=== PATIENT | male | born 1985 | race Caucasian/White ===

== ENCOUNTER 2019-11-14 08:01 | Emergency (ER) | payer OTHER, SELFPAY ==
[2019-11-14 08:11] VITALS: BP 130/80; PULSE 88; RESP 16; TEMP 37.2; O2SAT 96
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
[2019-11-14] MEDS: ALBUTEROL SULFATE NEB 2.5 MG/3 ML INH INHALATION ×2 (08:28→09:05)
[2019-11-14] MEDS: IPRATROPIUM BR 0.02% INH SOLN 0.5 MG/2.5 ML VIAL INHALATION ×2 (08:28→09:05)
[2019-11-14] MEDS: predniSONE 20 MG TABLET 60 MG PO (08:30)
== END 2019-11-14 09:36 | disposition home or self-care (01) ==
PROVIDERS: Emergency Provider Nurse Practitioner Family; PCP Internal Medicine Gastroenterology
DX: J45.901 Unspecified asthma with (acute) exacerbation (principal); F17.210 Nicotine dependence, cigarettes, uncomplicated
CPT/HCPCS: 94640; 99213; G0463; J7512

== ENCOUNTER 2019-12-16 16:34 | Emergency (ER) | payer OTHER, SELFPAY ==
[2019-12-16 16:42] VITALS: BP 131/67; PULSE 89; RESP 16; TEMP 37.2; O2SAT 97
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
[2019-12-16] MEDS: ALBUTEROL SULFATE NEB 2.5 MG/3 ML INH INHALATION (17:11)
[2019-12-16] MEDS: IPRATROPIUM BR 0.02% INH SOLN 0.5 MG/2.5 ML VIAL INHALATION (17:12)
[2019-12-16 17:50] VITALS: PULSE 87; RESP 16; O2SAT 97
== END 2019-12-16 18:00 | disposition home or self-care (01) ==
PROVIDERS: Emergency Provider Nurse Practitioner; PCP Internal Medicine Gastroenterology
DX: J06.9 Acute upper respiratory infection, unspecified (principal); J45.901 Unspecified asthma with (acute) exacerbation; F17.210 Nicotine dependence, cigarettes, uncomplicated; M19.90 Unspecified osteoarthritis, unspecified site
CPT/HCPCS: 87804; 99213; G0463

== ENCOUNTER 2022-07-20 05:52 | Day surgery (SDC) | payer OTHER, SELFPAY ==
[2022-07-15 08:06] VITALS: BMI 34.8
[2022-07-20 06:16] VITALS: BMI 35.7
[2022-07-20] MEDS: LACTATED RINGERS 1,000 ML 150 ML IV CONT (06:35)
[2022-07-20 06:40] VITALS: BP 116/68; PULSE 72; RESP 18; TEMP 36.3; O2SAT 98
--- NOTE | 2022-07-20 07:23 | WPDHPUPDATE1 ---
History and Physical Update Update Date/Time: 07/20/22 07:23 History and Physical has been reviewed, including an updated exam of the patient. There are NO changes in the patient's condition. Risks, benefits, and alternatives have been discussed and questions answered. Patient agrees to proceed with procedure.
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
[2022-07-20 08:11] VITALS: BP 120/82; PULSE 69; RESP 15; O2SAT 99
[2022-07-20 08:21] VITALS: BP 119/79; PULSE 66; RESP 14; O2SAT 97
[2022-07-20 08:31] VITALS: BP 109/78; PULSE 56; RESP 13; O2SAT 98
--- NOTE | 2022-07-20 08:34 | WPDANESPN ---
Anes - Prog Note Post-Op Date/Time: 07/20/22 08:34 Cardiovascular status: normal Respiratory status: normal Airway patency: baseline Mental status: baseline Post-Op hydration status: normal Vital Signs: Last Vital Signs Temp 36.3 C L 07/20/22 06:40 Pulse 66 07/20/22 08:21 Resp 14 07/20/22 08:21 BP 119/79 07/20/22 08:21 Pulse Ox 97 07/20/22 08:21 O2 Del Method Room Air 07/20/22 08:21 Pain Score (VAS): 3 I/O: Intake & Output 07/19/22 07/20/22 07/20/22 23:59 07:59 15:59 Intake Total 400 Balance 400 Patient Feedback: Patient satisfied with anesthetic care.
== END 2022-07-20 08:50 | disposition home or self-care (01) ==
PROVIDERS: Visit Provider Surgery
PROC: 0DJ08ZZ Inspection of Upper Intestinal Tract, Via Natural or Artificial Opening Endoscopic (ICD-10-PCS; CPT 43235; principal; 2022-07-20 07:30)
PROC: 0DJD8ZZ Inspection of Lower Intestinal Tract, Via Natural or Artificial Opening Endoscopic (ICD-10-PCS; CPT 45378; 2022-07-20 07:30)
DX: K92.1 Melena (principal)
CPT/HCPCS: 45378; 43239

== ENCOUNTER 2022-07-20 14:07 | Outpatient (NON) | payer OTHER, SELFPAY | END 2022-07-20 14:08 | disposition home or self-care (01) | LOC: ANHLAB 07-21 14:07 | PROVIDERS: Visit Provider Surgery | DX: K92.1 Melena (principal) | CPT/HCPCS: 88305 ==

== ENCOUNTER 2022-08-08 07:41 | Outpatient (CLI) | payer OTHER, SELFPAY ==
[2022-08-08 08:25] LABS: Cholesterol 191 mg/dL (0-200); HDL Direct 33 mg/dL; Triglycerides 448 mg/dL (<150)
[2022-08-08 08:36] LABS: LDL Cholesterol Direct 106 mg/dL
[2022-08-08 09:03] LABS: Hemoglobin A1C 5.2 % (<5.7)
== END 2022-08-08 07:42 | disposition home or self-care (01) ==
LOC: ANHLAB 07:43
PROVIDERS: Visit Provider Internal Medicine
DX: R07.9 Chest pain, unspecified (principal)
CPT/HCPCS: 36415; 80061; 83036

== ENCOUNTER 2024-10-21 10:34 | Emergency (ER) | payer OTHER, SELFPAY ==
[2024-10-21 10:40] VITALS: BP 113/71; PULSE 66; RESP 16; TEMP 36.8; O2SAT 99
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
[2024-10-21 11:29] LABS: EDCOVIDSCREEN Negative (Negative); EDINFLUASCREEN Negative (Negative); EDINFLUBSCREEN Negative (Negative)
== END 2024-10-21 11:30 | disposition home or self-care (01) ==
PROVIDERS: Emergency Provider Nurse Practitioner Family; PCP Internal Medicine Gastroenterology
DX: J20.9 Acute bronchitis, unspecified (principal); S50.862A Insect bite (nonvenomous) of left forearm, initial encounter; W57.XXXA Bitten or stung by nonvenomous insect and other nonvenomous arthropods, initial encounter; Z20.822 Contact with and (suspected) exposure to COVID-19; J45.909 Unspecified asthma, uncomplicated; M19.90 Unspecified osteoarthritis, unspecified site; F41.9 Anxiety disorder, unspecified
CPT/HCPCS: 87426; 87804; 99213; G0463